=== PATIENT | female | born 1995 | race Caucasian/White ===

== ENCOUNTER 2023-06-11 04:10 | Emergency (ER) | payer OTHER ==
[~2023-06-11] VITALS: Ht 172.7 cm; Wt 54.0 kg
[2023-06-11] MEDS ORDERED: IBU600T PO (07:57)
[2023-06-11] MEDS ORDERED: HYDROcodone-ACET 5/325MG TAB PO ONE (08:00)
[2023-06-11 08:15] VITALS: BP 110/67; PULSE 82; RESP 18; TEMP 98; O2SAT 99
== END 2023-06-11 09:08 | disposition home or self-care (01) ==
LOC: ER 04:10
DX: S93.691A Other sprain of right foot, initial encounter (principal); S93.501A Unspecified sprain of right great toe, initial encounter; X58.XXXA Exposure to other specified factors, initial encounter; Y93.89 Activity, other specified; Y92.89 Other specified places as the place of occurrence of the external cause; Y99.0 Civilian activity done for income or pay
CPT/HCPCS: 73630

== ENCOUNTER 2023-11-27 13:02 | Emergency (ER) | payer MEDICAID, OTHER ==
[~2023-11-27] VITALS: Ht 167.6 cm; Wt 52.7 kg
[~2023-11-27 13:02] MED LIST: IBU600T PO
[2023-11-27 13:24] VITALS: BP 109/73; PULSE 81; RESP 18; TEMP 98.3; O2SAT 96
[2023-11-27] MEDS ORDERED: NABU-72 PO (14:53)
[2023-11-27] MEDS ORDERED: AUG875T PO (14:53)
== END 2023-11-27 15:00 | disposition home or self-care (01) ==
LOC: ER 13:02
DX: J03.90 Acute tonsillitis, unspecified (principal); Z79.2 Long term (current) use of antibiotics; Z79.1 Long term (current) use of non-steroidal anti-inflammatories (NSAID); Z79.899 Other long term (current) drug therapy

== ENCOUNTER 2024-06-17 21:54 | Emergency (ER) | payer BC, MEDICAID ==
[~2024-06-17] VITALS: Ht 167.6 cm; Wt 57.4 kg
[~2024-06-17 21:54] MED LIST changes: +AUG875T PO; +NABU-72 PO
[2024-06-17] MEDS: MAGNESIUM SULFATE 1GM/100ML 100 ML IV SCH (23:30)
[2024-06-17] MEDS: SODIUM CHLORIDE 0.9% 1,000 ML IV ONE (23:30)
[2024-06-17 23:40] LABS: Basophils # (auto) 0.1 10 ^3/uL (0-0.2); Basophils % (auto) 0.5 % (0.0-2.0); Eosinophils # (auto) 0.2 10 ^3/uL (0-0.8); Eosinophils % (auto) 2.1 % (0.0-7.0); Hematocrit 41.9 % (36.0-46.0); Hemoglobin 14.5 g/dL (12.2-16.2); Lymphocytes # (auto) 2.8 10 ^3/uL (0.4-5.4); Lymphocytes % (auto) 29.7 % (10.0-50.0); Mean Corpuscular Hemoglobin 31.4 pg (28.0-32.0); Mean Corpuscular Hgb Conc. 34.7 g/dL (32.0-36.0); Mean Corpuscular Volume 90.5 fL (80.0-100.0); Monocytes # (auto) 0.6 10 ^3/uL (0-1.3); Monocytes % (auto) 6.7 % (0.0-12.0); Neutrophils # (auto) 5.7 10 ^3/uL (1.6-8.6); Red Blood Cells 4.63 10^6/uL (4.0-5.20); Red Cell Distribution Width 13.1 % (11.8-14.3); White Blood Cell 9.3 10^3/uL (4.4-10.8)
[2024-06-17 23:46] LABS: Chloride 104 mmol/L (98-107); Potassium 4.3 mmol/L (3.5-5.1); Sodium 139 mmol/L (136-145)
[2024-06-17 23:47] LABS: Anion Gap 4 (5-15); Calcium 9.4 mg/dL (8.7-10.4); Carbon Dioxide 31 mmol/L (20-30)
[2024-06-17 23:52] LABS: BUN/Creatinine Ratio 17.3 (10.0-20.0); Blood Urea Nitrogen 13 mg/dL (9-23); Glucose 82 mg/dL (74-106)
[2024-06-18] MEDS: METOCLOPRAMIDE HCL 5MG/ml INJ 2ml VIAL IV ONE (00:01)
[2024-06-18] MEDS: KETOROLAC TROMETH 30 MG/ML 1ML VIAL IV ONE (00:01)
[2024-06-18 00:26] VITALS: BP 86/56; PULSE 79; RESP 19; TEMP 97.7; O2SAT 99
== END 2024-06-18 00:50 | disposition home or self-care (01) ==
LOC: ER 21:54
DX: S06.0X0A Concussion without loss of consciousness, initial encounter (principal); Z79.1 Long term (current) use of non-steroidal anti-inflammatories (NSAID); Z79.899 Other long term (current) drug therapy; W18.30XA Fall on same level, unspecified, initial encounter; Y93.89 Activity, other specified; Y92.89 Other specified places as the place of occurrence of the external cause; Y99.8 Other external cause status
CPT/HCPCS: 36415; 80048; 85025; 96374; 96375; 99284; J1885; J2765; J3475